=== PATIENT | male | born 1955 ===

== ENCOUNTER 2020-12-18 21:07 | Emergency (ER) | payer SELFPAY ==
[~2020-12-18] VITALS: Ht 182.9 cm; Wt 90.9 kg
[2020-12-18 21:24] VITALS: Ht 182.9 cm; Wt 90.9 kg
[2020-12-18] MEDS ORDERED: LISINOPRIL40 MG PO ×2 (21:26→21:40)
[2020-12-18] MEDS ORDERED: NORVASC5 MG PO (21:40)
[2020-12-18 22:02] VITALS: BP 181/88
== END 2020-12-18 22:02 | disposition home or self-care (01) ==
LOC: D.ER 21:07
DX: I10 Essential (primary) hypertension (principal); Z76.0 Encounter for issue of repeat prescription; Z72.0 Tobacco use